=== PATIENT | male | born 1970 | race African-American/Black ===

== ENCOUNTER 2017-01-30 15:24 | Emergency (ER) | payer OTHER ==
[~2017-01-30] VITALS: Ht 180.3 cm; Wt 86.4 kg
[~2017-01-30 15:24] MED LIST: FIORICET,ESG1 TABLET PO; FLEXERIL10 MG PO; IBUPROFEN800 MG PO; KEFLEX500 MG PO; MECLIZINE HCL25 MG PO; MOTRIN800 MG PO; VALIUM2 MG PO
[2017-01-30 18:25] VITALS: BP 134/84
== END 2017-01-30 18:26 | disposition home or self-care (01) ==
LOC: EME 15:24 → EXP 15:24
DX: S09.8XXA Other specified injuries of head, initial encounter (principal); S20.212A Contusion of left front wall of thorax, initial encounter; S00.01XA Abrasion of scalp, initial encounter; W10.9XXA Fall (on) (from) unspecified stairs and steps, initial encounter
CPT/HCPCS: 71100; 99281; 99283

== ENCOUNTER 2017-04-16 16:11 | Emergency (ER) | payer OTHER ==
[~2017-04-16] VITALS: Ht 180.3 cm; Wt 87.0 kg
[2017-04-16 20:17] LABS: ADD MIUA? YES; BILIRUBIN NEGATIVE; BLOOD SMALL; COLOR STRAW ((YELLOW)); GLUCOSE (STRIP) NEGATIVE; KETONES NEGATIVE; LEUKOCYTES NEGATIVE; NITRITE NEGATIVE; PROTEIN (STRIP) NEGATIVE; SPECIFIC GRAVITY 1.006 (1.000-1.030); UROBILINOGEN 0.2 MG/DL (0.2-1.0)
[2017-04-16 20:29] LABS: BACTERIA RARE /HPF; EPITHELIAL CELLS NONE SEEN /HPF; MUCUS TRACE /LPF; RED BLOOD CELLS 0-5 /HPF (0-5); UCUL ADDED? NO; WHITE BLOOD CELLS 0-5 /HPF (0-5)
[2017-04-16 20:37] LABS: HEMATOCRIT 42.5 % (38.0-50.0); MCH 29.5 PG (29.0-34.0); MCHC 34.6 G/DL (30.0-36.0); MCV 85.3 FL (86-99); MEAN PLAT.VOLUME 9.2 uM^3 (9.0-12.4); PLATELET COUNT 213 K/uL (156-360); RBC DIS.WIDTH-CV 13.2 % (11.8-14.6); RBC DIS.WIDTH-SD 41.1 % (39-53); RED BLOOD COUNT 4.98 M/uL (4.00-5.50); WHITE BLOOD COUNT 5.7 K/uL (4.1-10.2)
[2017-04-16 20:46] LABS: CHLORIDE 108 mEq/L (99-109); POTASSIUM 3.6 mEq/L (3.7-5.4); SODIUM 141 mEq/L (136-147)
[2017-04-16 20:48] LABS: GLUCOSE 85 mg/dL (70-99)
[2017-04-16 20:50] LABS: ANION GAP 9 MEQ/L (2-14)
[2017-04-16 20:52] LABS: GFR ESTIMATE (CALCULATED) > 59 mL/min/
[2017-04-16 20:53] LABS: UREA NITROGEN (BUN) 14 mg/dL (9-23)
[2017-04-16] MEDS ORDERED: ZOFRAN4 MG PO (21:30)
[2017-04-16] MEDS ORDERED: ANTIVERT25 MG PO (21:30)
[2017-04-16 22:24] VITALS: BP 148/103
== END 2017-04-16 22:29 | disposition home or self-care (01) ==
LOC: EME 16:11
PROVIDERS: Physician Assistant
DX: R42 Dizziness and giddiness (principal); I10 Essential (primary) hypertension
CPT/HCPCS: 80048; 81003; 85027; 93005; 99281; 99284

== ENCOUNTER 2017-04-23 15:46 | Emergency (ER) | payer OTHER ==
[~2017-04-23] VITALS: Ht 180.3 cm; Wt 87.1 kg
[~2017-04-23 15:46] MED LIST changes: +ANTIVERT25 MG PO; +ZOFRAN4 MG PO
[2017-04-23] MEDS ORDERED: VALIUM2 MG PO (18:35)
[2017-04-23] MEDS ORDERED: MOTRIN800 MG PO (18:35)
[2017-04-23 18:49] VITALS: BP 132/89
== END 2017-04-23 18:52 | disposition home or self-care (01) ==
LOC: EME 15:46
DX: S16.1XXA Strain of muscle, fascia and tendon at neck level, initial encounter (principal); V89.2XXA Person injured in unspecified motor-vehicle accident, traffic, initial encounter; R42 Dizziness and giddiness
CPT/HCPCS: 72040; 99281; 99283

== ENCOUNTER 2017-11-13 22:59 | Emergency (ER) | payer OTHER ==
[~2017-11-13] VITALS: Ht 177.8 cm; Wt 86.9 kg
[2017-11-14 01:38] LABS: HEMATOCRIT 40.5 % (38.0-50.0); MCH 29.7 PG (29.0-34.0); MCHC 34.6 G/DL (30.0-36.0); PLATELET COUNT 191 K/uL (156-360); RBC DIS.WIDTH-CV 13.2 % (11.8-14.6); RBC DIS.WIDTH-SD 41.7 % (39-53); RED BLOOD COUNT 4.71 M/uL (4.00-5.50); WHITE BLOOD COUNT 6.1 K/uL (4.1-10.2)
[2017-11-14 01:49] LABS: CHLORIDE 105 mEq/L (99-109); SODIUM 141 mEq/L (136-147)
[2017-11-14 01:51] LABS: GLUCOSE 108 mg/dL (70-99)
[2017-11-14 01:55] LABS: CREATININE 1.2 mg/dL (0.6-1.3); GFR ESTIMATE (CALCULATED) > 59 mL/min/ (58.99-99999)
[2017-11-14 01:56] LABS: UREA NITROGEN (BUN) 12 mg/dL (9-23)
[2017-11-14] MEDS ORDERED: MECLIZINE HCL25 MG PO (03:15)
[2017-11-14 03:59] VITALS: BP 148/103
== END 2017-11-14 04:01 | disposition home or self-care (01) ==
LOC: EME 22:59
PROVIDERS: Emergency Medicine
DX: R42 Dizziness and giddiness (principal); I49.1 Atrial premature depolarization; R94.31 Abnormal electrocardiogram [ECG] [EKG]; I10 Essential (primary) hypertension; Z86.69 Personal history of other diseases of the nervous system and sense organs
CPT/HCPCS: 80048; 85027; 93005; 99281; 99285; J2405; J7030